=== PATIENT | female | born 1990 | race Caucasian/White ===

== ENCOUNTER 2016-11-17 04:08 | Inpatient (IN) | payer OTHER ==
[2016-11-17] VITALS (11 sets, daily range): BP systolic 80–117; BP diastolic 38–69
[~2016-11-17] VITALS: Ht 157.5 cm; Wt 59.1 kg
[2016-11-17 04:43] LABS: BASOPHIL % 0.2 % (0-2); PLATELET COUNT 223 x10^3mcL (130-400); RED CELL DISTRIBUTION WIDTH 12.9 % (11.5-14.5)
[2016-11-17 05:32] LABS: microscopic required? YES; urine erythrocyte 3+ (NEGATIVE)
[2016-11-17 08:53] LABS: AMPHETAMINE QUAL UR POSITIVE (NEG <=1000)
[2016-11-17 08:54] LABS: T3 TOTAL 1.64 ng/mL
[2016-11-17 09:23] LABS: FREE T4 1.28 ng/dL (0.76-1.46); FREE THYROXINE INDEX 3.8 ug/dL (1.4-4.5); T4(THYROXINE) 12.3 ug/dL (4.7-13.3)
[2016-11-17 09:36] LABS: ALBUMIN 3.5 g/dL (3.4-5.0); ALKALINE PHOSPHATASE 60 U/L (46-116); ALT/SGPT 30 U/L (14-59); AST/SGOT 17 U/L (15-37); BILIRUBIN TOTAL 0.3 mg/dL (0.20-1.00); CALCIUM 8.8 mg/dL (8.5-10.1); CARBON DIOXIDE 22.1 mmol/L (21-32); CHLORIDE SERUM 103 mmol/L (98-107); CHOLESTEROL 169 mg/dL (<200); CREATININE SERUM 0.6 mg/dL (0.6-1.0); GFR1 > 60 mL/min; GLUCOSE SERUM 88 mg/dL (74-106); MAGNESIUM 1.6 mg/dL (1.8-2.4); PHOSPHOROUS 3.7 mg/dL (2.5-4.9); POTASSIUM SERUM 3.4 mmol/L (3.5-5.1); SODIUM SERUM 136 mmol/L (136-145); TOTAL PROTEIN, SERUM 7.2 g/dL (6.4-8.2); TRIGLYCERIDES 36 mg/dL (<150)
[2016-11-17 09:37] LABS: CHOLESTEROL/HDL RATIO 2.3; HDL CHOLESTEROL 73 mg/dL (40-60)
[2016-11-18 05:31] VITALS: BP 104/62
[2016-11-18 06:52] LABS: BASOPHIL % 0.4 % (0-2); PLATELET COUNT 168 x10^3mcL (130-400)
[2016-11-18 07:16] LABS: CALCIUM 8.2 mg/dL (8.5-10.1); CARBON DIOXIDE 25.9 mmol/L (21-32); CHLORIDE SERUM 109 mmol/L (98-107); CREATININE SERUM 0.5 mg/dL (0.6-1.0); GFR1 > 60 mL/min; GLUCOSE SERUM 80 mg/dL (74-106); MAGNESIUM 1.9 mg/dL (1.8-2.4); PHOSPHOROUS 3.4 mg/dL (2.5-4.9); POTASSIUM SERUM 3.9 mmol/L (3.5-5.1); SODIUM SERUM 140 mmol/L (136-145)
[2016-11-18 09:00] VITALS: BP 110/63
[2016-11-18 12:36] VITALS: BP 112/58
[2016-11-18 16:37] VITALS: BP 112/58
== END 2016-11-18 16:20 | disposition home or self-care (01) | DRG 544 ==
LOC: ED 04:08 → DU 05:35
PROVIDERS: Emergency Medicine; Obstetrics & Gynecology; ADMIT Family Medicine
PROC: 10D17ZZ Extraction of Products of Conception, Retained, Via Natural or Artificial Opening (ICD-10-PCS; principal; 2016-11-17 16:00)
DX: O03.1 Delayed or excessive hemorrhage following incomplete spontaneous abortion (principal); N17.0 Acute kidney failure with tubular necrosis; N39.0 Urinary tract infection, site not specified; F17.210 Nicotine dependence, cigarettes, uncomplicated; E87.6 Hypokalemia; E83.42 Hypomagnesemia; F15.10 Other stimulant abuse, uncomplicated; Z90.49 Acquired absence of other specified parts of digestive tract
CPT/HCPCS: 83880; 84439; 94150; C1758; J0696; J2210; J2250; J2270; J2405; J3010; J3475; J7030

== ENCOUNTER 2017-01-22 02:08 | Inpatient (IN) | payer OTHER ==
[~2017-01-22] VITALS: Ht 157.5 cm; Wt 54.0 kg
--- NOTE | 2017-01-22 03:27 | NUR ---
PATIENT SEEN WITH COMPLAINT OF VAGINAL BLEEDING WHICH STARTED 2 HOURS AGO. PATIENT REPORTS MISCARRIAGE ON 12/29.MD AT THE BEDSIDE.
[2017-01-22 03:38] LABS: PLATELET COUNT 314 x10^3mcL (130-400); RED CELL DISTRIBUTION WIDTH 11.9 % (11.5-14.5)
--- NOTE | 2017-01-22 03:39 | NUR ---
PATIENT WANTS TO LEAVE. MD ENCOURAGE PATIENT TO STAY AND HAVE ULTRASOUND DONE .
[2017-01-22 03:42] LABS: BASOPHIL % 6.9 % (0-2)
--- NOTE | 2017-01-22 03:45 | NUR ---
PATIENT WENT TO HAVE ULTRASOUND DONE.
[2017-01-22 04:04] LABS: HCG SERUM QUALITATIVE NEGATIVE; HCG SERUM QUANTITATIVE 0 mIU/mL
--- NOTE | 2017-01-22 04:10 | NUR ---
PATIENT RETURN FROM ULTRASOUND.
[2017-01-22 05:05] LABS: UA SPECIFIC GRAVITY 1.015 (1.005-1.035); microscopic required? YES; urine erythrocyte 3+ (NEGATIVE)
--- NOTE | 2017-01-22 06:06 | NUR ---
PATIENT IS ADMITTED . MRSA SWAB WAS DONE. REPORT WAS GIVEN TO STEPHEN. PATIENT TRANSPORTED TO ROOM 257B
[2017-01-22 06:40] VITALS: BP 129/74
--- NOTE | 2017-01-22 06:45 | NUR ---
NEWLY ADMITTED 26 YEAR OLD FEMALE, WHO IS ALERT AND ORIENTED, PLEASANT AND COOPERATIVE WHO CAME IN FOR RETAINED PRODUCTS OF CONCEPTION/ BLEEDING. PT HAS NO HISTORY AND NOT TAKING ANY MEDICATIONS AT HOME ACCORDING TO REPORT. DENIES ANY PAIN AT THIS TIME. CHECKED FOR BLEEDING, NOTED NO BLEEDING AT THIS TIME. OFFERED OB PAD AND UNDERWEAR. ACCORDING TO REPORT SHE HAS MISCARRIAGE LAST AND HER PERIOD WAS BACK DEC 17. 2 HOURS PRIOR TO ARRIVAL IN ED (022) SHE HAD HEAVY BLEEDING. AND WAS CONFIRMED BY ULTRASOUND THAT SHE HAS RETAINED PRODUCTS OF CONCEPTION. PT NOTED GENERALIZED WEAKNESS, PALE SKIN, COOPERATIVE, NOTED TATTOOS ON LEFT FOREARM. IV SITE LEFT AC. LUNGS CLEAR O AUSCULTATIONS BILATERALLY. TELE NO 19. NST WITH ELEVATED T. WILL CONTINUE TOMNITTOR. THE IV IS IN THE LEFT AC. PATENT AND INTACT. WILL GAVE REPORT THE PLAN OF CARE TO THE INCOMING NURSE.
[2017-01-22 06:56] LABS: CHOLESTEROL/HDL RATIO 2.4; MAGNESIUM 2.2 mg/dL (1.8-2.4)
[2017-01-22 07:02] LABS: T3 TOTAL 1.15 ng/mL
--- NOTE | 2017-01-22 07:25 | NUR ---
PATIENT TRANSFERRED FROM ED AT 0630, AROUSABLE TO TOUCH, ABLE TO MAKE NEEDS KNOWN, PERRLA, DENIES ACTIVE BLEEDING AT THIS TIME, ACTIVE BOWEL SOUNDS X4 QUADS, ABD SOFT, TENDER TO TOUCH, REPORTS ABD PAIN 1/10, LUNGS CTA, NO RESPIRATORY DISTRESS NOTED, PALPABLE PERIPHERAL PULSES, IV AT LAC PATENT, AMBULATES WITH STEADY GAIT, REPORTS FEELING WEAK, SKIN CDI, , REPORTS MISCARRIAGE IN 2013 WITH D&C, HAD REGULAR MENSES ON 12/29, TODAYS SHE PRESENTS WITH HEAVY PAINFULL BLEEDING X1 DAY, AT BEDSIDE, PATIENT ORIENTED TO ROOM AND CALL LIGHT, WILL CONTINUE TO PROVIDE CARE.
[2017-01-22 07:29] LABS: FREE T4 1.13 ng/dL (0.76-1.46); FREE THYROXINE INDEX 3.7 ug/dL (1.4-4.5); T4(THYROXINE) 10.8 ug/dL (4.7-13.3)
[2017-01-22 07:32] LABS: AMPHETAMINE QUAL UR POSITIVE (NEG <=1000)
[2017-01-22 08:38] VITALS: BP 129/74
[2017-01-22 08:50] LABS: TOTAL IRON BINDING CAPACITY 268 ug/dL (250-450)
[2017-01-22 08:51] LABS: IRON 27 ug/dL (50-170)
[2017-01-22 08:59] LABS: ALBUMIN 3.4 g/dL (3.4-5.0); ALKALINE PHOSPHATASE 58 U/L (46-116); ALT/SGPT 20 U/L (14-59); AST/SGOT 15 U/L (15-37); BILIRUBIN TOTAL 0.39 mg/dL (0.20-1.00); CALCIUM 8.6 mg/dL (8.5-10.1); CARBON DIOXIDE 29.8 mmol/L (21-32); CHLORIDE SERUM 107 mmol/L (98-107); CREATININE SERUM 0.7 mg/dL (0.6-1.0); GFR1 > 60 mL/min; GLUCOSE SERUM 84 mg/dL (74-106); POTASSIUM SERUM 3.2 mmol/L (3.5-5.1); SODIUM SERUM 141 mmol/L (136-145); TOTAL PROTEIN, SERUM 6.8 g/dL (6.4-8.2)
[2017-01-22 09:16] LABS: RED BLOOD CELLS 3.76 M/mm3 (4.10-5.10)
[2017-01-22 09:41] VITALS: BP 108/68
[2017-01-22 12:58] VITALS: BP 101/63
--- NOTE | 2017-01-22 12:58 | NUR ---
RESTING IN BED, AROUSABLE TO TACTILE STIMULUS, HAS NOT HAD ANY VAG BLEEDING, HAS NOT VOIDED, DENIES ABD PAIN, REPORTS FEELING "COMGORTABLE" AT BEDSIDE, CALL LIGHT WITHIN REACH, WILL CONTINUE TO PROVIDE CARE.
--- NOTE | 2017-01-22 16:22 | NUR ---
AWAKE AND ALERT, TOLERATING LUNCH TRAY WITHOUT GI DISTRESS.
[2017-01-22 16:32] VITALS: BP 129/86
--- NOTE | 2017-01-22 18:25 | NUR ---
SITTING UP IN BED, ABLE TO TOLERATE DINNER WITHOUT GI DISTRESS, DENIES ABD PAIN OR CRAMPS, HAS NOT HAD ANY SOILED PERIPADS, NO VAGINAL BLEEDING THROUGHOUT SHIFT, DR HARRELL TO SEE PATIENT TODAY, NO OTHER SIGNIFICANT CHANGES NOTED, WILL ENDORSE CARE NIGHT RN.
--- NOTE | 2017-01-22 19:30 | NUR ---
PT IS ALERT AND ORIENTED. PLEASANT AND COOPERATIVE. LUNGS CLEAR ON AUSCULTATIONS BILATERALLY.ROOM AIR. PT HAS EPISODES OF BLEEDING AND DR. ROACH WAS NOTIFIED. HAS A NEW ORDER OF CBC. PT AMBULATED THE HALLWAY AND AFTER SHE WENT BACK TO HER BED SHE HAS THE EPISODES OF BLEEDING. STILL HAS IV NS AT 125 ML PER HOUR INFUSING WELL IN THE LEFT AC. PATENT AND INTACT. USED PERIPAD. UDS POSITIVE FOR METH. WILL CONTINUE TO MONITOR.
[2017-01-22 21:16] VITALS: BP 121/73
--- NOTE | 2017-01-22 21:35 | NUR ---
PT C/O MODERATE ABDOMINAL PAIN 08/22. MEDICATED WITH NORCO 1 TAB PO. WILL MONITOR.
--- NOTE | 2017-01-23 05:30 | NUR ---
PT IS RESTING RIGHT NOW. NO BLEEDING EPISODES NOTED. DENIES ANY PAIN. STILL HAS IV NS AT 90 ML PER HOUR INFUSING WELL. MADE COMFORTABLE IN BED. CALL LIGHT WITHIN EASY REACH.
[2017-01-23 05:33] VITALS: BP 96/62
[2017-01-23 07:23] LABS: BASOPHIL % 0.5 % (0-2); PLATELET COUNT 247 x10^3mcL (130-400); RED CELL DISTRIBUTION WIDTH 12.7 % (11.5-14.5)
[2017-01-23 07:35] LABS: CARBON DIOXIDE 26.4 mmol/L (21-32); CHLORIDE SERUM 108 mmol/L (98-107); CREATININE SERUM 0.7 mg/dL (0.6-1.0); GFR1 > 60 mL/min; GLUCOSE SERUM 93 mg/dL (74-106); MAGNESIUM 1.9 mg/dL (1.8-2.4); PHOSPHOROUS 3.7 mg/dL (2.5-4.9); POTASSIUM SERUM 4.2 mmol/L (3.5-5.1); SODIUM SERUM 141 mmol/L (136-145)
--- NOTE | 2017-01-23 07:35 | NUR ---
AT BEDSIDE, RESTING IN BED AROUSABLE TO LIGHT TOUCH, DENIES ABD CRAMPS OR VAGINAL BLEEDING, ON TELE #19 SR ON MONITOR, DENIES HEART RELATED PAIN OR DISCOMFORT, IV AT LAC INFUSING NS AT 125ML/HR, CALL LIGHT WITHIN REACH, WILL CONTINUE TO PROVIDE CARE.
--- NOTE | 2017-01-23 08:49 | NUR ---
DR HARRELL AT BEDSIDE TO EVAL PATIENT, PATIENT WILL RECEIVE DOSE OF METHERGINE 0.2MG, PT MAY D/C TODAY OR ONCE MEDICALLY CLEARED, WILL PROCEED ACCORDINGLY.
[2017-01-23 09:11] VITALS: BP 101/60
--- NOTE | 2017-01-23 10:59 | NUR ---
DR CASTLE MADE AWARE OF DR HARRELL'S ORDER FOR METHERGINE.
--- NOTE | 2017-01-23 12:03 | NUR ---
ROUNDS WITH DR CHAVIS AND MEDICAL TEAM, UPDATED PT ON CURRENT POC.
[2017-01-23] MEDS ORDERED: FERROUS SULFAT325 M2 PO (12:25)
[2017-01-23] MEDS ORDERED: LAC PO (12:25)
[2017-01-23] MEDS ORDERED: MAC100 PO (12:25)
[2017-01-23] MEDS ORDERED: VITC100 PO (12:26)
[2017-01-23] MEDS ORDERED: NORETHINDRONE0.35 MG PO (12:30)
[2017-01-23 13:06] VITALS: BP 115/66
[2017-01-23 17:11] VITALS: BP 105/66
--- NOTE | 2017-01-23 18:56 | NUR ---
AT BEDSIDE, PATIENT IS AWAKE AND ALERT, DENIES ABD PAIN OR DRAMPS, X1 PERIPAD WITH SCANT AMOUNT OF BRIGHT RED BLOOD, NO OTHER SIGNIFICANT CHANGES NOTED, CARE WILL BE ENDORSED TO NIGHT NURSE.
--- NOTE | 2017-01-23 19:50 | NUR ---
PT FOUND IN BED, A/O X4. VERBALLY RESPONSIVE. RESPIRATIONS BILATERALLY CLEAR UPON AUSCULTATION. BILATERAL PULSES PALPABLE. BOWEL SOUNDS PRESENT IN ALL 4 QUADRANTS. SCANT AMOUNT OF BLOOD ON LIZBETH PAD X1. IV TO LAC SALINE LOCKED. ALL NEEDS MET AT THIS TIME. VISITOR AT BEDSIDE, CALL LIGHT IN REACH, WILL CONTINUE TO MONITOR.
[2017-01-23 21:20] VITALS: BP 129/85
--- NOTE | 2017-01-23 21:45 | NUR ---
PT C/O PAIN 5/10 IN PELVIC REGION. MEDICATED WITH NORCO PO. PATIENT TOLERATED WELL. WILL CONTINUE TO MONITOR.
--- NOTE | 2017-01-24 05:32 | NUR ---
PT A/O X4, ABLE TO STATE NEEDS. OCCASSIONALLY TEARFUL, BUT WILL STATE SHE IS "OKAY". STILL HAS IVPB ANTIBIOTIC ROCEPHIN, NO ADVERSE REACTION NOTED. NO ACUTE CHANGES NOTED AT THIS TIME. ALL NEEDS MET, CALL LIGHT IN REACH, WILL CONTINUE TO MONITOR.
[2017-01-24 05:49] VITALS: BP 124/80
[2017-01-24 07:20] LABS: CALCIUM 8.7 mg/dL (8.5-10.1); CARBON DIOXIDE 29.6 mmol/L (21-32); CHLORIDE SERUM 105 mmol/L (98-107); CREATININE SERUM 0.6 mg/dL (0.6-1.0); GFR1 > 60 mL/min; GLUCOSE SERUM 88 mg/dL (74-106); MAGNESIUM 1.9 mg/dL (1.8-2.4); PHOSPHOROUS 3.7 mg/dL (2.5-4.9); POTASSIUM SERUM 3.5 mmol/L (3.5-5.1); SODIUM SERUM 142 mmol/L (136-145)
--- NOTE | 2017-01-24 07:30 | NUR ---
RESTING IN BED, AWAKE AND ALERT, ABLE TO VERBALIZE NEEDS WITH CLEAR AND COHERENT SPEECH, DENIES VAGINAL BLEEDING, CRAMPING OR DISCOMFORT, IV AT R/HAND HEPLOCK, CALL LIGHT WITHIN REACH, WILL CONTINUE TO PROVIDE CARE. SPENT THE NIGHT WITH PATIENT.
[2017-01-24 07:42] LABS: BASOPHIL % 0.6 % (0-2); PLATELET COUNT 296 x10^3mcL (130-400); RED CELL DISTRIBUTION WIDTH 12.7 % (11.5-14.5)
[2017-01-24 09:30] VITALS: BP 114/71
--- NOTE | 2017-01-24 12:54 | NUR ---
LATE ENTRY FOR 909: REFUSED AM MEDS AND SUPPLEMENTS, REPORTS "MY STOMACH DOES NOT FEEL GOOD" DENIES N&V RISKS AND BENEFITS EXPLAINED, VERBALIZED UNDERSTANDING, CALL LIGHT WITHIN REACH.
[2017-01-24 13:02] VITALS: BP 114/71
--- NOTE | 2017-01-24 17:20 | NUR ---
PATIENT DISCHARGED HOME, REVIEWED DISCHARGE INSTRUCTIONS WITH PATIENT AND FAMILY INCLUDING CALLING ON Wednesday01/25/17 TO SCHEDULE A FOLLOW UP APPOINTMENT WITH PCP, PATIENT AND FAMILY VERBALIZED UNDERSTANDING OF DISCHARGE INSTRUCTIONS. IV D/C'D CATH TIP INTACT, NO BLEEDING OR PHLEBITIS NOTED, COVERED WITH BANDAID. PATIENT AMBULATED DOWNSTAIRS WITH FAMILY AND MATTRESS PACKER.
== END 2017-01-24 17:15 | disposition home or self-care (01) | DRG 532 ==
LOC: ED 02:08 → DU 05:33 → MU 01-23 16:01
PROVIDERS: Emergency Medicine; Student in an Organized Health Care Education/Training Program; ADMIT Family Medicine
DX: N93.9 Abnormal uterine and vaginal bleeding, unspecified (principal); N17.0 Acute kidney failure with tubular necrosis; D62 Acute posthemorrhagic anemia; E87.8 Other disorders of electrolyte and fluid balance, not elsewhere classified; E83.51 Hypocalcemia; F15.10 Other stimulant abuse, uncomplicated; N39.0 Urinary tract infection, site not specified; E87.6 Hypokalemia
CPT/HCPCS: 83880; 84439; J0696; J7030

== ENCOUNTER 2018-01-29 00:57 | Inpatient (IN) | payer OTHER ==
[~2018-01-29] VITALS: Ht 157.5 cm; Wt 56.2 kg
[~2018-01-29 00:57] MED LIST: FERROUS SULFAT325 M2 PO; LAC PO; MAC100 PO; NORETHINDRONE0.35 MG PO; VITC100 PO
[2018-01-29 01:09] VITALS: Ht 157.5 cm; Wt 56.2 kg
[2018-01-29 02:27] LABS: BASOPHIL % 0.4 % (0-2); PLATELET COUNT 305 x10^3mcL (130-400); RED CELL DISTRIBUTION WIDTH 13.5 % (11.5-14.5)
[2018-01-29 02:41] LABS: CALCIUM 8.6 mg/dL (8.5-10.1); CARBON DIOXIDE 28.4 mmol/L (21-32); CHLORIDE SERUM 110 mmol/L (98-107); CREATININE SERUM 0.7 mg/dL (0.6-1.0); GFR1 > 60 mL/min; GLUCOSE SERUM 102 mg/dL (74-106); POTASSIUM SERUM 3.7 mmol/L (3.5-5.1); SODIUM SERUM 144 mmol/L (136-145)
[2018-01-29 02:55] LABS: ALBUMIN 3.6 g/dL (3.4-5.0); ALKALINE PHOSPHATASE 80 U/L (46-116); ALT/SGPT 22 U/L (14-59); AST/SGOT 13 U/L (15-37); BILIRUBIN TOTAL 0.24 mg/dL (0.20-1.00); FREE T4 1.12 ng/dL (0.76-1.46); TOTAL PROTEIN, SERUM 6.7 g/dL (6.4-8.2)
[2018-01-29 09:51] LABS: UA SPECIFIC GRAVITY >=1.030 (1.005-1.035); microscopic required? YES; urine erythrocyte NEGATIVE (NEGATIVE)
[2018-01-29 10:01] LABS: AMPHETAMINE QUAL UR POSITIVE (See below)
[2018-01-29 14:55] VITALS: BP 109/76
[2018-01-29 15:05] VITALS: BP 109/76
== END 2018-01-29 18:15 | DRG 384 ==
LOC: ED 00:57 → MU 13:47
PROVIDERS: Emergency Medicine
PROC: 0HQCXZZ Repair Left Upper Arm Skin, External Approach (ICD-10-PCS; principal; 2018-01-29)
DX: S51.812A Laceration without foreign body of left forearm, initial encounter (principal); R45.851 Suicidal ideations; F15.10 Other stimulant abuse, uncomplicated; N39.0 Urinary tract infection, site not specified; F32.9 Major depressive disorder, single episode, unspecified; X78.1XXA Intentional self-harm by knife, initial encounter; Y93.89 Activity, other specified; Z59.0 Homelessness; Y92.89 Other specified places as the place of occurrence of the external cause; Y99.8 Other external cause status; Z71.51 Drug abuse counseling and surveillance of drug abuser
CPT/HCPCS: 84439; 90715; G0480; J2001

== ENCOUNTER 2018-12-10 12:06 | Inpatient (IN) | payer OTHER ==
[~2018-12-10] VITALS: Ht 167.6 cm; Wt 61.2 kg
--- NOTE | 2018-12-10 12:11 | NUR ---
PLACED IN BED 11 FOR EVAL.
[2018-12-10 12:30] VITALS: Ht 167.6 cm; Wt 61.2 kg
--- NOTE | 2018-12-10 12:57 | NUR ---
pt resting at this time post medication pt stated wasnt preg on inital assessment and with md then stated was preg and lmp was in june 2018. vitals stable no s/s of distress zofran given and toradol.iv started as well as ivf going pain scale post 05/22 to have us and fht.
[2018-12-10 13:03] LABS: BASOPHIL % 0.1 % (0-2); PLATELET COUNT 240 x10^3mcL (130-400); RED CELL DISTRIBUTION WIDTH 12.2 % (11.5-14.5)
[2018-12-10 13:06] LABS: ALBUMIN 2.6 g/dL (3.4-5.0); AST/SGOT 14 U/L (15-37); BILIRUBIN TOTAL 0.41 mg/dL (0.20-1.00); CALCIUM 8.1 mg/dL (8.5-10.1); CARBON DIOXIDE 27.3 mmol/L (21-32); CHLORIDE SERUM 102 mmol/L (98-107); CREATININE SERUM 0.6 mg/dL (0.6-1.0); GFR1 > 60 mL/min; GLUCOSE SERUM 115 mg/dL (74-106); POTASSIUM SERUM 3.3 mmol/L (3.5-5.1); SODIUM SERUM 137 mmol/L (136-145); TOTAL PROTEIN, SERUM 6.6 g/dL (6.4-8.2)
[2018-12-10 13:07] LABS: ALKALINE PHOSPHATASE 84 U/L (46-116); ALT/SGPT 16 U/L (14-59); LIPASE 65 IU/L (73-393)
--- NOTE | 2018-12-10 13:51 | NUR ---
DOWN TO ULTRASOUND
--- NOTE | 2018-12-10 14:27 | NUR ---
PT BACK ON THE FLOOR FROM US AND MADE COMFORTABLE IN BED.
--- NOTE | 2018-12-10 15:42 | NUR ---
RESTING AT THIS TIME WITH NO S/S OF DISTRESS VSS IV SITE REMAINS INTACT CALL LIGHT IN REACH AWATING TO GET ADMITTED.
--- NOTE | 2018-12-10 19:31 | NUR ---
report off to an kelly pt remains stable with no s/s of distress inform pt of need for urine stated unable to go at this time juice gib=tash x2 and 1 liter started to re-assess post ivf
[2018-12-10 19:44] LABS: T3 TOTAL 1.39 ng/mL
[2018-12-10 19:52] LABS: microscopic required? YES; urine erythrocyte 2+ (NEGATIVE)
--- NOTE | 2018-12-10 20:02 | NUR ---
REPORT OFF TO ISAK PIEDRA NOTE PT HR ELEVATED AFTER OOB TO RESTROOM 100-120 HAS BEEN RUNNING 89-100 DR HERVE PAINTING AT [phone] TO INFORM OG ELEVATED HR PT HAD US FHT AT 146 NO S/S OF DISTRESS AT THIS TIME PAIN SCALE 5/10 CHARGE NURSE MADE AWARE PT TO BE TRANSFERED.
[2018-12-10 20:17] LABS: FREE T4 0.98 ng/dL (0.76-1.46)
[2018-12-10 20:27] LABS: MAGNESIUM 1.3 mg/dL (1.8-2.4); PHOSPHOROUS 3.1 mg/dL (2.5-4.9)
--- NOTE | 2018-12-10 20:27 | NUR ---
Spoke with ed dr george informed of hr pressure bag placed on ivf pre b/p at 98/50 rr 22 hr at 108.leticia informed to check post ivf completed.pt remains stable with no s/s of distrerss at this.
[2018-12-10 20:28] LABS: FREE THYROXINE INDEX 3.2 ug/dL (1.4-4.5); T4(THYROXINE) 13.8 ug/dL (4.7-13.3)
[2018-12-10 20:31] LABS: CHOLESTEROL/HDL RATIO 2.4
--- NOTE | 2018-12-10 20:55 | NUR ---
3RD BOLUS W/ PRESSURE BAG FINISHED. PT HR STILL 110-115. MD MADE AWARE. PER MD, PT SHOULD BE UPGRADED TO TELE. AWAITING ORDERS.
--- NOTE | 2018-12-10 21:26 | NUR ---
SPOKE TO ADMITTING ERSIDENT. PER RESIDENT, HE WILL BE UPGRADING TO PT TO TELE FLOOR. AWAITING ORDERS TO BE INPUT.
--- NOTE | 2018-12-10 21:35 | NUR ---
SPOKE TO EARLENE PARISI ABOUT TRANSFERING UPSTAIRS. RN WILL SPEAK TO RESIDENT BEFORE ACCEPTING PT UPSTAIRS.
--- NOTE | 2018-12-10 21:55 | NUR ---
SPOKE WITH RESIDENT EDITH IN REGARDS TO PT STATUS IN ER PRIOR TO ADMISSION, PT BLOOD PRESSURE LOW, TACHYCARDIAC AND AT RISK D/T . INQUIRED IF RESIDENT WOULD LIKE TO COLLABORATE WITH SUPERIORS TO ENSURE THIS IS A SAFE ADMISSION OR PT WILL BE BETTER BEING TRANSFERRED TO [facility]. PER DR SHARMA, SPOKE WITH DR HARRELL (OBGYN), PT DOES NOT MEET CRITERIA FOR TRANSFER, WILL ADMIT PATIENT TO TELE AND MONITOR CLOSELY. WILL ACCEPT PT AND REMAIN IN CONTACT WITH RESIDENT TEAM TO ENSURE THE SAFETY OF PT AND UNBORN BABY.
--- NOTE | 2018-12-10 22:00 | NUR ---
SPOKE TO EARLENE PARISI. PER EARLENE, SHE SPOKE TO ADMITTING MD, PT OK TO GO UPSTAIRS TO TELE
--- NOTE | 2018-12-10 22:32 | NUR ---
RECEIVED PT VIA [employer] FROM E/D, ACCOMPANIED BY RN AND TRANSPORTER. PT A/A/O X 4, CALM, COOPERATIVE; NOTED OU CONSTRICTED PUPILS; PT HAS PREVIOUS HOSPITALIZATION HERE AT [facility] FOR S/I, WHICH PT DENIES HAVING IDEATION OF WHEN ASKED IF SHE HAD ANY. AMBULATORY, NO GAIT OR BALANCE IMPAIRMENT NOTED WHEN WALKING FROM GURNEY TO BED. ON TELE # 9, HR 122, ST, DENIES CHEST PAIN OR DISCOMFORT AT THIS TIME. SCD BY BEDSIDE. NO ACUTE RESPIRATORY DISTRESS NOTED. C/O DYSURIA (BURNING URINATION) AND INTERMITTENT SHARP R FLANK PAIN 8/10 THAT IS EXACERBATED OR RELIEVED BY NOTHING; PT DENIES TAKING DRUGS. IV SITE LW 20G, CDI. ORIENTED PT TO ROOM, BED CONTROLS, CALL LIGHT SYSTEM. SIDE RAILS UP X 2, BED IN LOW POSITION. WILL ENDORSE TO ISAK POWELL.
--- NOTE | 2018-12-10 22:45 | NUR ---
PT VITALS SIGNS LOW UPON ADMISSION, CALLED DR. HDEZ TO RELAY INFORMATION. BP= 88/49 (62), 2ND ATTEMPT= 84/41(55), HR 120'S. RECIEVED ORDERS TO GIVE 500ML NS BOLUS, PER DR. HDEZ, WILL RECHECK BP AFTER BOLUS AND DOCUMENT VS. PT REQUESITNG SNACKS, WILL PROVIDE PER ORDER. CALL LIGHT WITHIN REACH, BED IN LOWEST POSITION, WILL CONTINUE TO MONITOR.
[2018-12-10 23:00] VITALS: BP 84/41
[2018-12-10 23:11] LABS: AMPHETAMINE QUAL UR POSITIVE (See below)
[2018-12-10 23:45] VITALS: BP 91/45
--- NOTE | 2018-12-10 23:45 | NUR ---
OBTAINED PT VS S/P 500ML BOLUS, PT BP= 91/45 (60), HR 137, PT HAS TEMP= 102.7F. PT SHAKING IN BED, PUT A/C ON, REMOVED BLANLET. PT LIPS APPEARS PALE, SLIGHTLY LABORED BREATHING. O2 SAT= 95% ON RA. PT HAS ONLY VOIDED 100ML SINCE ADMISSION. MONITORING OUTPUT AND FEVER/VS CLOSELY. DR. HDEZ AWARE OF SITUATION, WILL ADMINISTER TYLENOL 650 MG PO PER ORDER FOR FEVER. CALL LIGHT WITHIN REACH, BED IN LOWEST POSITION, WILL CONTINUE TO MONITOR.
[2018-12-11] VITALS (18 sets, daily range): BP systolic 81–110; BP diastolic 32–67
--- NOTE | 2018-12-11 00:45 | NUR ---
OBTAINED VS S/P 1 HOUR AFTER PT TOOK TYLENOL AND BOLUS X4. LATEST BP= 90/47 (61), HR 132, TEMP= 99.1. 2ND BP OBAITNED= 88/43 (58), HR 129, 02 SAT= 97% RA, RR= 24. PT REPORTS FEELING REALLY BAD WITH PAIN TO THE RT SIDE FLANK, WILL UPDATE DR. SHARMA.
--- NOTE | 2018-12-11 00:50 | NUR ---
UPDATED DR HDEZ IN REGARDS TO PT VS S/P BOLUS, PER DR., PT BP BETTER THAN IN ER AND WILL CONTINUE TO CLOSELY MONITOR. INFORMED DR. HR RANGED FROM 130-140'S AT REST. PT SHAKING INTERMITTENTLY, REPORTS HAVING PAIN IN BACK, PER DR HDEZ, WILL ASSESS WHAT PT CAN RECEIVE IN REGARDS TO PAIN WELL ASSESS THE PROTOCOL FOR HEART MONITORING. WILL WAIT FOR FURTHER ORDERS.
--- NOTE | 2018-12-11 02:51 | NUR ---
CHARGE NURSE DAVID INITIATED 2ND 500ML BOLUS PER DR SHARMA ORDER D/T PT PERSISTENT HYPOTENSION, TACHYCARDIA AND FEBRILE. WILL MONITOR CLOSELY.
--- NOTE | 2018-12-11 05:00 | NUR ---
PT COMPLETING HER LAST BOLUS OF NS, ONCE COMPLETE, PT WILL HAVE RECEIVED 2600ML NS, 800ML INPUT (WATER), WITH ONLY 300ML OUTPUT OF CLOUDY URINE IN TOLIET. REMAINING AFEBRILE AT THIS TIME, SLEEPING IN BED, ABLE TO FOLLOW SIMPLE COMMANDS. IV SITE TO THE LEFT WRIST REMAINS PATENT, NO REDNESS, SWELLING OR PAIN NOTED. PT DENIES N/V/D. SIGNIFICANT OTHER AT BEDSIDE. DR. SHARMA CLOSELY INVOLVED INCARE, CALL LIGHT WITHIN REACH, BED IN LOWEST POSITION, WILL CONTINUE TO MONITOR.
--- NOTE | 2018-12-11 05:53 | NUR ---
INFORMED DR SHARMA IN REGARDS TO PT POST BOLUS VS: BP= 92/58 (69), HR 112, 98% RA, T= 97.2, PT C/O PAIN IN RT FLANK, ABD.SHARP IN NATURE. D/T PT AND LOW BP, WILL MEDICATE PRUDENTLY WITH TYLENOL AND ENSURE NOT TO EXCEED MAX DAILY DOSE.
--- NOTE | 2018-12-11 06:46 | NUR ---
RECEIVED A CALL FORM Jhoana HARRELL IN REGARDS TO A CONSULTATION FOR PT. INFORMED DR IN REGARDS TO PT DIAGNOSIS OF PYELONEPHRITIS, PERSISTENT HYPOTENSION, FEVER. INFORMED DR IN REGARDS TO PT WAS UNAWARE SHE WAS (5 MONTHS), WELL DRUG USE. DID NOT HAVE THE CHANCE TO INQUIRE IF IT IS SAFE FOR PT TO HAVE K+ PO NOR DID I INQUIRE IF WE CAN DO/HOW OFTEN WE SHOULD DO HEART MONITORING. WILL ENDORSE THESE QUESTIONS TO DAYSHIFT.
[2018-12-11 07:14] LABS: CALCIUM 6.6 mg/dL (8.5-10.1); CARBON DIOXIDE 19.3 mmol/L (21-32); CHLORIDE SERUM 109 mmol/L (98-107); CREATININE SERUM 0.6 mg/dL (0.6-1.0); GFR1 > 60 mL/min; GLUCOSE SERUM 72 mg/dL (74-106); PHOSPHOROUS 2.3 mg/dL (2.5-4.9); SODIUM SERUM 139 mmol/L (136-145)
[2018-12-11 07:28] LABS: PLATELET COUNT 179 x10^3mcL (130-400)
[2018-12-11 07:32] LABS: MAGNESIUM 0.9 mg/dL (1.8-2.4); POTASSIUM SERUM 2.8 mmol/L (3.5-5.1)
--- NOTE | 2018-12-11 07:35 | NUR ---
LAB REPORTS - PATIENT'S POTASSIUM LEVEL 2.8; MAG LEVEL 0.9; WBC = 26.8. CALLED [phone] MADDOX.
--- NOTE | 2018-12-11 07:45 | NUR ---
MAG RIDER 2GM IV STARTED. KCL 20MEQ PO AND TYLENOL 325MG PO GIVEN PER ORDER.
--- NOTE | 2018-12-11 08:15 | NUR ---
INSERTED 2ND IV LINE TO RFA W/ 22G. ADDITIONAL KCL 20 MEQ PO GIVEN PER ORDER.
--- NOTE | 2018-12-11 09:49 | NUR ---
DR HERRERA AND RESIDENTS AT BEDSIDE. CARE PLAN DISCUSSED WITH PATIENT. US OB DONE BY DR HERRERA AT BEDSIDE. HEART RATE- 144, CHECKED BY DR HERRERA. PATIENT COMFORTABLE AT THIS TIME. ATTENDING NURSE JORDEN MADE AWARE.
[2018-12-11 11:02] LABS: BAND NEUTROPHIL 2 % (0-10); BASOPHIL 0 % (0-2); MONOCYTE 3 % (0-7); PLATELET MORPHOLOGY PLATELETS DECREASED; SEGMENTED NEUTROPHILS 10 % (37-75)
[2018-12-11 11:03] LABS: rbc morphology (normal/abnorm) ABNORMAL (NORMAL)
--- NOTE | 2018-12-11 11:12 | NUR ---
C/O RT FLANK SHARP PAIN ON 12/22. PATIENT WAS CRYING. B/P = 107/61. DR. GARCIAS NOTIFIED. ORDER OF MORPHINE 1MG IVP GIVEN. CONTINUE MONITOR.
--- NOTE | 2018-12-11 13:24 | NUR ---
TEMP = 101.1; P=146; B/P = 107/61; TYLENOL 650MG PO GIVEN, DR. GARCIAS AWARE OF. PATIENT HAD NAP AFTER MORPHINE 1MG IVP GIVEN. STATED FEELING BETTER.
--- NOTE | 2018-12-11 15:30 | NUR ---
V/S = 98.2-115-28-81/36, MAP =51; RECHECKED B/P = 88/37. O2 SAT 96% ON RA. DR. GARCIAS NOTIFIED. NEW ORDER OF NS 500CC BOLUS IV STARTED.
--- NOTE | 2018-12-11 16:50 | NUR ---
NS 500CC BOLUS DONE B/P = 86/49; MAP = 61; PATIENT HAD VOIDED 2000 CC OF URINE SINCE 7AM THIS AM. URINE LESS COUDY COMPARED WITH URINE OF THIS AM. ADDITIONAL 500CC OF NS BOLUS STARED.
--- NOTE | 2018-12-11 18:05 | NUR ---
2ND NS 500CC BOLUS IV GIVEN. B/P = 103/67; MAP = 79. P = 93. O2 SAT 98% ON RA. PATEINT TOLERATED REGULAR DIET DINNER. VOID 2400 CC URINE VIA BRP. NO BM THIS SHIFT. CONDITION SIGNIFICANT IMPROVING. ENDORSED CARE TO NOC NURSE.
[2018-12-11 18:15] LABS: CHLORIDE SERUM 110 mmol/L (98-107); CREATININE SERUM 0.6 mg/dL (0.6-1.0); GFR1 > 60 mL/min; GLUCOSE SERUM 107 mg/dL (74-106); POTASSIUM SERUM 3.5 mmol/L (3.5-5.1); SODIUM SERUM 140 mmol/L (136-145)
[2018-12-11 18:57] LABS: PLATELET COUNT 171 x10^3mcL (130-400); RED CELL DISTRIBUTION WIDTH 13.3 % (11.5-14.5)
--- NOTE | 2018-12-11 19:15 | NUR ---
RECEIVED PHONE CALL FROM [facility] [place] [facility]. TELE REPORT GIVEN TO [facility], . ENDORSED CARE TO [facility] NURSE.
[2018-12-11 19:21] LABS: BAND NEUTROPHIL 9 % (0-10); MONOCYTE 7 % (0-7); SEGMENTED NEUTROPHILS 79 % (37-75)
[2018-12-11 19:23] LABS: PLATELET MORPHOLOGY PLATELETS NORMAL; rbc morphology (normal/abnorm) NORMAL (NORMAL)
--- NOTE | 2018-12-11 19:25 | NUR ---
RECEIVED REPORT FROM DAYSHIFT NURSE, JORDEN. PT VSS, DENIES PAIN AT THIS TIME. RESP EVEN AND UNLABORED, ON RA, DENIES SOB. TELE #9, ST 101. DENIES CP. PULSES PALPABLE BILAT, DENIES NUMBNESS/TINGLING IN FEET. ABD FIRM, SLIGHTLY DISTENDED, REPORTS INTERMITTENT ABD PAIN (SHARP/CRAMPING IN NATURE). PT REPORTS PAIN UNDER CONTROL AT THIS TIME. PT VOIDING CLEAR YELLOW URINE, IV SITES PATENT, LT WRIST, RT FA, NO REDNESS, SWELLING OR PAIN NOTED. ALL COMFORT AND SAFETY MEASURES PROVIDED FOR, CALL LIGHT WITHIN REACH, BED IN LOWEST POSITION, WILL CONTINUE TO MONITOR.
--- NOTE | 2018-12-11 19:30 | NUR ---
RECIEVED A CALL FROM [facility], BED IS AVAILABE FOR PT, ICU 2, RM 293. WILL INFORM RESIDENT AND ENSURE TRANSFER ORDERS ARE IN. UPDATED PT WITH PLAN OF CARE, ALL QUESTIONS AND CONCERNS ADDRESSED, PT AGREEABLE WITH PLAN OF CARE AT THIS TIME. WILL CONTINUE TO MONITOR.
[2018-12-11] MEDS ORDERED: ROC1I IV (20:14)
--- NOTE | 2018-12-11 20:14 | NUR ---
ON THE PHONE TO GIVE REPORT TO [facility], PT WILL BE TRANSFERED TO [facility] ICU 2 RM 293. PT UPDATED WITH PLAN OF CARE, IMAGING CD ORDERED, TRANSFER PACKET SIGNED, PT VSS. BP= 95/56 (69), HR 107, T 97.1, 96% RA, REPORTS PAIN UNDER CONTROL AT THIS TIME.
--- NOTE | 2018-12-11 20:25 | NUR ---
KINDRAHED GIVING REPORT TO HARSH FROM [facility], ACCEPTING NURSING FOR PT. PT WILL BE GOING TO ICU 2, RM 293, ALL QUESTIONS AND CONCERNS ADDRESSED, WILL UPDATE PT WITH PLAN.
--- NOTE | 2018-12-11 20:57 | NUR ---
TRANSPORTATION TEAM HERE TO TRANSFER PT, PT CALM AND COOPERATIVE AT THIS TIME, ALL QUESTIONS AND CONCERNS ADDRESSED AT THIS TIME, PT CONNECTED TO FULL CARDIAC MONITORING, REPORTS PAIN UNDER CONTROL AT THIS TIME. REMOVED TELE MONITOR, PT CHNAGED IN TRANSFER GOWN, ALL PT PERSONAL BELONGINGS HANDED OFF, PT ABLE TO WALK SELF TO GUERNY, GAIT, SLOW/STEADY. NO ACUTE DISTRESS NOTED.
--- NOTE | 2018-12-11 21:00 | NUR ---
PT OFF THE FLOOR WITH TRANSPORTATION TEA,. TRANSFER PACKET IN HAND OF [facility], PT ALERT AND ORIENTED. SAFE TRANSFER COMPLETE.
--- NOTE | 2018-12-12 10:09 | NUR ---
ECHO NOT DONE PT. WAS DISCHARGED
== END 2018-12-11 21:00 | disposition short-term general hospital (02) | DRG 566 ==
LOC: ED 12:06 → DU 18:39 → EDBEDREQSVC 21:23 → DU 22:33
PROVIDERS: Student in an Organized Health Care Education/Training Program; ADMIT General Practice
DX: O98.812 Other maternal infectious and parasitic diseases complicating pregnancy, second trimester (principal); R65.21 Severe sepsis with septic shock; E83.42 Hypomagnesemia; O23.02 Infections of kidney in pregnancy, second trimester; Z90.49 Acquired absence of other specified parts of digestive tract; F32.9 Major depressive disorder, single episode, unspecified; Z87.891 Personal history of nicotine dependence; E87.6 Hypokalemia; O99.322 Drug use complicating pregnancy, second trimester; F15.90 Other stimulant use, unspecified, uncomplicated; O99.282 Endocrine, nutritional and metabolic diseases complicating pregnancy, second trimester; O25.12 Malnutrition in pregnancy, second trimester; Z3A.20 20 weeks gestation of pregnancy
CPT/HCPCS: 83880; 84439; G0378; J0696; J1885; J2270; J2405; J3475; J7030; J7060; Q0092

== ENCOUNTER 2019-04-15 22:32 | Emergency (ER) | payer OTHER ==
[~2019-04-15] VITALS: Ht 157.5 cm; Wt 78.5 kg
[~2019-04-15 22:32] MED LIST changes: +ROC1I IV
[2019-04-16 02:31] LABS: BASOPHIL % 0.2 % (0-2); PLATELET COUNT 248 x10^3mcL (130-400); RED CELL DISTRIBUTION WIDTH 17.7 % (11.5-14.5)
[2019-04-16 02:41] LABS: CALCIUM 8.7 mg/dL (8.5-10.1); CARBON DIOXIDE 22.9 mmol/L (21-32); CHLORIDE SERUM 104 mmol/L (98-107); CREATININE SERUM 0.6 mg/dL (0.6-1.0); GFR1 > 60 mL/min; GLUCOSE SERUM 87 mg/dL (74-106); POTASSIUM SERUM 3.4 mmol/L (3.5-5.1); SODIUM SERUM 136 mmol/L (136-145)
[2019-04-16 02:45] LABS: ALKALINE PHOSPHATASE 192 U/L (46-116); ALT/SGPT 21 U/L (14-59); AST/SGOT 11 U/L (15-37); BILIRUBIN TOTAL 0.25 mg/dL (0.20-1.00); LACTIC DEHYDROGENASE (LDH) 176 U/L (100-190)
[2019-04-16 02:46] LABS: ALBUMIN 2.1 g/dL (3.4-5.0); TOTAL PROTEIN, SERUM 5.9 g/dL (6.4-8.2)
[2019-04-16 04:13] LABS: UA SPECIFIC GRAVITY >=1.030 (1.005-1.035); microscopic required? YES; urine erythrocyte NEGATIVE (NEGATIVE)
[2019-04-16 04:25] VITALS: BP 99/64
== END 2019-04-16 04:25 | disposition home or self-care (01) ==
LOC: ED 22:32
PROVIDERS: Emergency Medicine
DX: O26.893 Other specified pregnancy related conditions, third trimester (principal); R60.0 Localized edema; Z3A.40 40 weeks gestation of pregnancy
CPT/HCPCS: 36415; Q0092